=== PATIENT | female | born 1950 | race African-American/Black ===

== ENCOUNTER 2018-12-18 11:20 | Inpatient (IN) | payer MEDICARE, OTHER ==
[~2018-12-18] VITALS: Ht 162.6 cm; Wt 68.0 kg
[~2018-12-18 11:20] MED LIST: ASPI-1393 PO; B1/B1TAB5 PO; CALC-900 PO; CINN500C5 PO; DICL100G27 TP; DICL100G31 TP; HYDR-2510 PO; LYSI500T PO; MAGN500C4 PO; RED600CA5 PO; UBID50TA3 PO; [UNRECOGNIZED DRUG - OTHER] TOP; vimovo PO
[2018-12-18] MEDS: LACTATED RINGERS 1,000 ML IV SCH ×2 (13:30→23:56)
[2018-12-18] MEDS ORDERED: ROCURONIUM BROMIDE 10MG/ML VIAL 5ML IV ONE (14:15)
[2018-12-18] MEDS ORDERED: FENTANYL CITRATE/PF 50MCG/ML 2ML VIAL ONE ×2 (14:15→16:12)
[2018-12-18] MEDS ORDERED: MIDAZOLAM HCL 2 MG/2 ML VIAL ONE (14:15)
[2018-12-18] MEDS ORDERED: PROPOFOL 200MG/20ML VIAL IV ONE (14:15)
[2018-12-18] MEDS ORDERED: DEXAMETHASONE 4MG/ML 1ML VIAL ONE (14:36)
[2018-12-18] MEDS ORDERED: TRIAMCINOLONE ACETONIDE 40MG/ML 1ML VIAL ONE (14:36)
[2018-12-18] MEDS ORDERED: LIDOCAINE HCL 1% 20ML VIAL (Pyxis) INJ ONE (14:36)
[2018-12-18] MEDS ORDERED: BUPIVACAINE HCL/PF 0.5% (5MG/ML) 10ML ONE ×2 (14:36→17:46)
[2018-12-18] MEDS ORDERED: BACITRACIN 50,000 UNITS/VIAL ONE (14:37)
[2018-12-18] MEDS ORDERED: BUPIVACAINE HCL 0.5% (5MG/ML) 50ML ONE (14:45)
[2018-12-18] MEDS ORDERED: DOCUSATE SODIUM 100MG CAPSULE PO PRN (15:15)
[2018-12-18] MEDS ORDERED: HYDROMORPHONE HCL/PF 2MG/ML CPJ IV PRN ×2 (15:15→18:30)
[2018-12-18] MEDS ORDERED: ACETAMINOPHEN 325MG TABLET PO PRN (15:15)
[2018-12-18] MEDS ORDERED: IPRATROPIUM/ALBUTEROL 0.5-3(2.5)MG/3ML NEB INH PRN (15:15)
[2018-12-18] MEDS ORDERED: DIPHENHYDRAMINE 50MG/ML VIAL IV PRN (15:15)
[2018-12-18] MEDS ORDERED: GUAIFENESIN 200MG/10ML SUGAR FREE UDC PO PRN (15:15)
[2018-12-18] MEDS ORDERED: MAGNESIUM/ALUMINUM HYDROXIDE/SIMETHICONE 30ML UDC PO PRN (15:15)
[2018-12-18] MEDS ORDERED: ONDANSETRON HCL 4MG/2ML INJ IV PRN ×2 (15:15→18:30)
[2018-12-18] MEDS ORDERED: CLONIDINE 0.1MG TABLET PO PRN (15:15)
[2018-12-18] MEDS ORDERED: LORAZEPAM 0.5MG TABLET PO PRN (15:15)
[2018-12-18] MEDS ORDERED: NA PHOS,M-B/NA PHOS,DI-BA ENEMA 118ML PR PRN (15:15)
[2018-12-18] MEDS ORDERED: CEFAZOLIN SODIUM 1000MG/VIAL ONE (15:32)
[2018-12-18] MEDS ORDERED: NEOSTIGMINE METHYLSULFATE 1MG/ML 10 ML VIAL ONE (16:40)
[2018-12-18] MEDS ORDERED: GLYCOPYRROLATE 0.2 MG/ML 2ML VIAL ONE (16:40)
[2018-12-18] MEDS: HYDROMORPHONE HCL/PF 2MG/ML CPJ IV PRN ×2 (19:04→19:24)
[2018-12-18 20:14] VITALS: BP 145/81
[2018-12-18] MEDS ORDERED: CEFAZOLIN SODIUM 1000MG/VIAL IV SCH (22:00)
[2018-12-18] MEDS ORDERED: ACETAMINOPHEN 500MG TABLET PO SCH (22:00)
[2018-12-18] MEDS: OXYCODONE HCL/ACETAMINOPHEN 5/325MG TABLET PO PRN (23:50)
[2018-12-18] MEDS: CEFAZOLIN 1000MG PREMIX 50 ML IV SCH (23:51)
[2018-12-19 00:27] VITALS: BP 120/62
[2018-12-19] MEDS ORDERED: POTA10TA11 PO (03:33)
[2018-12-19 04:00] VITALS: BP 112/67
[2018-12-19] MEDS: CEFAZOLIN 1000MG PREMIX 50 ML IV SCH (06:29)
[2018-12-19] MEDS: SODIUM CHLORIDE 0.9% INJ 3ML FLUSH IVF SCH ×3 (06:30→23:52)
[2018-12-19 06:50] LABS: CHLORIDE 102 mEq/L (98-107)
[2018-12-19 07:06] LABS: BASOPHILS % 0.2 % (0.0-2.0); HEMATOCRIT. 35.9 % (36.0-48.0); HEMOGLOBIN. 12.5 g/dL (12.0-16.0); LYMPHOCYTES % 13.5 % (20.0-50.0); MEAN CORPUSCULAR HEMOGLOBIN 29.8 pg (28.0-32.0); MEAN CORPUSCULAR VOLUME 85.6 fL (81.0-99.0); MEAN PLATELET VOLUME 9.4 fl (7.4-10.4); MONOCYTES % 2.8 % (2.0-8.0); NEUTROPHILS % 83.5 % (40.0-76.0); PLATELET 267 x1000/uL (130-400); RED BLOOD CELL COUNT 4.19 mill/uL (4.2-5.4)
[2018-12-19 08:00] VITALS: BP 127/72
[2018-12-19] MEDS: HYDROCHLOROTHIAZIDE 25MG TABLET PO SCH (08:43)
[2018-12-19] MEDS: POTASSIUM CHLORIDE 10MEQ TABLET SR PO SCH (08:43)
[2018-12-19] MEDS: OXYCODONE HCL/ACETAMINOPHEN 5/325MG TABLET PO PRN ×2 (10:25→17:43)
[2018-12-19] MEDS: ENOXAPARIN 40MG/0.4ML SYR SUBCUT SCH (11:22)
[2018-12-19 12:00] VITALS: BP 106/78
[2018-12-19 16:00] VITALS: BP 113/65
[2018-12-19 20:00] VITALS: BP 118/74
[2018-12-20] VITALS: BP 117/63
[2018-12-20 04:00] VITALS: BP 97/61
[2018-12-20] MEDS: SODIUM CHLORIDE 0.9% INJ 3ML FLUSH IVF SCH (06:39)
[2018-12-20] MEDS: POTASSIUM CHLORIDE 10MEQ TABLET SR PO SCH (08:30)
[2018-12-20] MEDS: HYDROCHLOROTHIAZIDE 25MG TABLET PO SCH (08:30)
[2018-12-20] MEDS: ENOXAPARIN 40MG/0.4ML SYR SUBCUT SCH (08:30)
[2018-12-20 10:39] VITALS: BP 159/72
== END 2018-12-20 12:10 | disposition home health service (06) | DRG 502 ==
LOC: OR 11:20 → 5WST 11:21 → ORIP 12:53 → 6EST 21:03
PROVIDERS: ADMIT Podiatrist Foot & Ankle Surgery; ATTEND Podiatrist Foot & Ankle Surgery
PROC: 0LQP0ZZ Repair Left Lower Leg Tendon, Open Approach (ICD-10-PCS; principal; 2018-12-18)
PROC: 0LC Tendons, Extirpation (ICD-10-PCS; 2018-12-18)
DX: S86.012A Strain of left Achilles tendon, initial encounter (principal); M76.62 Achilles tendinitis, left leg; W18.39XA Other fall on same level, initial encounter; I10 Essential (primary) hypertension; M77.9 Enthesopathy, unspecified; M21.962 Unspecified acquired deformity of left lower leg; Z79.899 Other long term (current) drug therapy; Y93.89 Activity, other specified; Y92.89 Other specified places as the place of occurrence of the external cause; Y99.8 Other external cause status
CPT/HCPCS: 36415; 73650; 80048; 82962; 88304; 88311; 97116; 97163; C1713; J0690; J1100; J1170; J1650; J2250; J2704; J2710; J3010; J3301; J3490